=== PATIENT | female | born 1935 | race Caucasian/White ===

== ENCOUNTER 2018-12-25 12:46 | Emergency (ER) | payer MEDICARE ==
[~2018-12-25] VITALS: Ht 157.5 cm; Wt 74.8 kg
[~2018-12-25 12:46] MED LIST: CLON-528 PO; ONDA4TAB6 PO
[2018-12-25] MEDS ORDERED: acetaminophen 325mg tablet PO ONE (12:55)
[2018-12-25 13:15] LABS: BASOPHILS % (AUTO) 0.2 % (0-1); EOSINOPHILS # (AUTO) 0.1 X10'3 (0-0.9); HEMATOCRIT 41.1 % (35.0-45.0); HEMOGLOBIN 14.1 g/dl (12.0-16.0); LYMPHOCYTES # (AUTO) 1.3 X10'3 (1.1-4.8); LYMPHOCYTES % (AUTO) 19.6 % (21-51); MEAN CORPUSCULAR HEMOGLOBIN 30.6 PG (27.0-31.0); MEAN CORPUSCULAR HGB CONC 34.3 g/dL (33.0-36.5); MEAN CORPUSCULAR VOLUME 89.2 FL (78-98); MONOCYTES # (AUTO) 0.5 X10'3 (0-0.9); NEUTROPHILS # (AUTO) 4.9 X10'3 (1.8-7.7); NEUTROPHILS % (AUTO) 72.2 % (42-75); PLATELET COUNT 228 X10'3 (140-440); RED BLOOD COUNT 4.61 X10'6 (4.20-5.60); RED CELL DISTRIBUTION WIDTH 14.4 % (11.5-14.5); WHITE BLOOD COUNT 6.7 X10'3 (4.5-11.0)
[2018-12-25 13:25] LABS: PARTIAL THROMBOPLASTIN TIME 26 SECONDS (22-32)
[2018-12-25 13:27] LABS: ALANINE AMINOTRANSFERASE 23 U/L (12-78); ALBUMIN 3.7 G/DL (3.4-5.0); ALBUMIN/GLOBULIN RATIO 1.1 (1.1-1.5); ALKALINE PHOSPHATASE 54 IU/L (46-116); ANION GAP 7 (8-16); ASPARTATE AMINO TRANSFERASE 19 U/L (10-37); BILIRUBIN,TOTAL 0.4 MG/DL (0.1-1.0); BLOOD UREA NITROGEN 10 MG/DL (7-18); CALCIUM 8.9 MG/DL (8.5-10.1); CHLORIDE 102 MMOL/L (99-107); CREATININE 0.83 MG/DL (0.40-0.90); GLUCOSE 98 MG/DL (70-104); MAGNESIUM 1.9 MG/DL (1.5-2.4); POTASSIUM 3.6 MMOL/L (3.5-5.1); SODIUM 137 MMOL/L (135-145); TOTAL CARBON DIOXIDE 27.9 MMOL/L (24-32); eGFR 65 ML/MIN
[2018-12-25 13:47] LABS: CLARITY,URINE CLEAR (Clear); COLOR,URINE STRAW (Yellow); GLUCOSE, URINE NEGATIVE (Neg); KETONES,URINE NEGATIVE (Neg); LEUKOCYTE ESTERASE ,URINE NEGATIVE (Neg); NITRITES, URINE NEGATIVE (Neg); OCCULT BLOOD,URINE NEGATIVE (Neg); PH,URINE 6.5 (4.8-8.0); PROTEIN,URINE NEGATIVE (Neg); UROBILINOGEN,URINE 0.2 E.U/dL (0.2-1.0)
[2018-12-25 13:55] LABS: UA COLLECTION TYPE OTHER
[2018-12-25 14:26] VITALS: BP 180/105
== END 2018-12-25 14:29 | disposition home or self-care (01) ==
LOC: ER 12:47
DX: S92.325A Nondisplaced fracture of second metatarsal bone, left foot, initial encounter for closed fracture (principal); S92.335A Nondisplaced fracture of third metatarsal bone, left foot, initial encounter for closed fracture; R07.89 Other chest pain; Z88.6 Allergy status to analgesic agent; Z88.8 Allergy status to other drugs, medicaments and biological substances; Z86.73 Personal history of transient ischemic attack (TIA), and cerebral infarction without residual deficits; W18.30XA Fall on same level, unspecified, initial encounter; Y93.89 Activity, other specified; Y92.89 Other specified places as the place of occurrence of the external cause; Y99.8 Other external cause status
CPT/HCPCS: 36415; 71045; 73630; 80053; 81003; 83735; 85025; 85610; 85730; 93005; 99284

== ENCOUNTER 2018-12-30 16:45 | Inpatient (IN) | payer MEDICARE | END 2019-01-03 14:20 | LOC: ER 16:45 → ORTHO 4S 12-31 01:59 | DX: S20.212A Contusion of left front wall of thorax, initial encounter (principal); S92.302A Fracture of unspecified metatarsal bone(s), left foot, initial encounter for closed fracture ==

== ENCOUNTER 2019-06-20 08:09 | Inpatient (IN) | payer MEDICARE ==
[~2019-06-20] VITALS: Ht 172.7 cm; Wt 85.0 kg
[~2019-06-20 08:09] MED LIST changes: -CLON-528 PO; +CLOP75TA35 PO; +LOSA1TAB41 PO; +METO-384 PO; -ONDA4TAB6 PO; +RANI150T8 PO; +ROSU5TAB12 PO
[2019-06-20] MEDS ORDERED: normal saline 1000ML IV soln IV ONE (08:45)
[2019-06-20 09:21] LABS: BASOPHILS % (AUTO) 0.1 % (0-1); EOSINOPHILS # (AUTO) 0.1 X10'3 (0-0.9); EOSINOPHILS % (AUTO) 0.9 % (0-6); HEMATOCRIT 36.7 % (35.0-45.0); HEMOGLOBIN 12.6 g/dl (12.0-16.0); LYMPHOCYTES # (AUTO) 1.3 X10'3 (1.1-4.8); LYMPHOCYTES % (AUTO) 13.9 % (21-51); MEAN CORPUSCULAR HEMOGLOBIN 31.2 PG (27.0-31.0); MEAN CORPUSCULAR HGB CONC 34.4 g/dL (33.0-36.5); MEAN CORPUSCULAR VOLUME 90.7 FL (78-98); MONOCYTES # (AUTO) 0.5 X10'3 (0-0.9); MONOCYTES % (AUTO) 5.1 % (2-12); NEUTROPHILS # (AUTO) 7.5 X10'3 (1.8-7.7); PLATELET COUNT 232 X10'3 (140-440); RED BLOOD COUNT 4.05 X10'6 (4.20-5.60); RED CELL DISTRIBUTION WIDTH 13.7 % (11.5-14.5); WHITE BLOOD COUNT 9.4 X10'3 (4.5-11.0)
[2019-06-20 09:26] LABS: OCCULT BLOOD STOOL POSITIVE (Neg)
[2019-06-20 09:33] LABS: PARTIAL THROMBOPLASTIN TIME 24 SECONDS (22-32)
[2019-06-20 09:40] LABS: ALANINE AMINOTRANSFERASE 28 U/L (12-78); ALBUMIN 3.5 G/DL (3.4-5.0); ALBUMIN/GLOBULIN RATIO 1.1 (1.1-1.5); ALKALINE PHOSPHATASE 44 IU/L (46-116); ANION GAP 7 (8-16); ASPARTATE AMINO TRANSFERASE 20 U/L (10-37); BILIRUBIN,TOTAL 0.3 MG/DL (0.1-1.0); BLOOD UREA NITROGEN 20 MG/DL (7-18); BUN/CREATININE RATIO 22.2 (6.6-38.0); CALCIUM 8.6 MG/DL (8.5-10.1); CHLORIDE 106 MMOL/L (99-107); GLUCOSE 112 MG/DL (70-104); POTASSIUM 3.7 MMOL/L (3.5-5.1); SODIUM 141 MMOL/L (135-145); TOTAL CARBON DIOXIDE 28.3 MMOL/L (24-32); TOTAL PROTEIN 6.8 G/DL (6.4-8.2); eGFR 60 ML/MIN
[2019-06-20] MEDS ORDERED: CELE200C PO (10:45)
[2019-06-20] MEDS ORDERED: DICL100G15 TOP (10:45)
[2019-06-20] MEDS ORDERED: HYDR-4353 PO (10:45)
[2019-06-20] MEDS ORDERED: MULT-625 PO (10:45)
[2019-06-20] MEDS ORDERED: CYAN100097 PO (10:45)
[2019-06-20] MEDS ORDERED: CLON-529 PO (10:45)
[2019-06-20] MEDS ORDERED: UBID100T7 PO (10:45)
[2019-06-20] MEDS ORDERED: ACET-2119 PO (10:45)
[2019-06-20] MEDS ORDERED: GLUC500T12 PEG (10:45)
[2019-06-20] MEDS ORDERED: ASPI81TA52 PO (10:47)
[2019-06-20] MEDS ORDERED: magnesium hydroxide 30ml (MOM) UD suspension PO PRN (11:25)
[2019-06-20] MEDS ORDERED: acetaminophen 325mg tablet PO PRN ×2 (11:25→15:05)
[2019-06-20] MEDS ORDERED: ondansetron/PF 4mg/2ml inj IV PRN (11:25)
[2019-06-20] MEDS ORDERED: mag hydrox/Alum hydrox/simeth 30ml oral suspension PO PRN (11:25)
--- NOTE | 2019-06-20 11:32 | NUR ---
PT HAS LITTLE e and poss BIG E antibodies.
[2019-06-20 12:02] LABS: HEMATOCRIT 33.8 % (35.0-45.0); HEMOGLOBIN 11.8 g/dl (12.0-16.0); MEAN CORPUSCULAR HEMOGLOBIN 31.4 PG (27.0-31.0); MEAN CORPUSCULAR VOLUME 89.6 FL (78-98); MEAN PLATELET VOLUME 8.2 FL (7.4-10.4); PLATELET COUNT 224 X10'3 (140-440); RED BLOOD COUNT 3.77 X10'6 (4.20-5.60); RED CELL DISTRIBUTION WIDTH 13.9 % (11.5-14.5); WHITE BLOOD COUNT 8.8 X10'3 (4.5-11.0)
[2019-06-20] MEDS: normal saline 1000ml 1,000 ML IV SCH ×2 (12:03→21:21)
[2019-06-20 12:45] VITALS: BP 146/61
--- NOTE | 2019-06-20 12:45 | NUR ---
Received patient to room 357a via gurney accompanied by x1 staff. Patient is alert and oriented and in no apparent acute distress. Patient oriented to room and call light. Call light within patient's reach. Bed is low and locked.
--- NOTE | 2019-06-20 14:04 | NUR ---
Patient was being transferred to wheelchair when threat monitoring analyst tech called and stated patient was "in the 160's with PAC and might go in to afib." Let threat monitoring analyst tech know that patient was getting up to wheelchair. Then notified by telecom field technician that patient "she's in 120's and in afib." Patient denies any chest pain but does state "my heart is beating really fast." Patient put back in to bed and Dr. Love notified. Dr. Love in to see patient.
[2019-06-20 14:14] VITALS: BP 144/86
--- NOTE | 2019-06-20 14:16 | NUR ---
STAT EKG completed. Dr Love was shown results. No new orders.
[2019-06-20] MEDS ORDERED: heparin sodium, porcine/PF 100unit/ml 5ML syringe IV ONE (14:23)
--- NOTE | 2019-06-20 14:23 | NUR ---
Patient down to Nuc Med.
[2019-06-20] MEDS ORDERED: cloNIDine 0.1 mg tablet PO PRN (15:05)
--- NOTE | 2019-06-20 17:45 | NUR ---
Patient returned to room 357B via gurney accompanied by x1 staff. Patient A&O and in no apparent acute distress. Patient needed to use bedpan. Placed patient on bedpan. Call light within reach.
[2019-06-20 18:00] VITALS: BP 146/62
--- NOTE | 2019-06-20 18:12 | NUR ---
Paged Dr Love to call for phone number to call back Dr Chun the Radiologist that has a critical result. Dr Chun phone number is
--- NOTE | 2019-06-20 18:33 | NUR ---
Problems reprioritized. Patient report given, questions answered & plan of care reviewed with DESEAN aBbin.
--- NOTE | 2019-06-20 18:34 | NUR ---
Patient in room [facility]. I have received report from DESEAN Olivas and had the opportunity to ask questions and assume patient care.
[2019-06-20] MEDS ORDERED: PEG 3350/Na sulf,bicarb,Cl/KCl oral sol 4 liter bottle PO ONE (18:35)
[2019-06-20 19:09] LABS: HEMATOCRIT 31.1 % (35.0-45.0); HEMOGLOBIN 10.5 g/dl (12.0-16.0); MEAN CORPUSCULAR HEMOGLOBIN 30.8 PG (27.0-31.0); MEAN CORPUSCULAR HGB CONC 33.8 g/dL (33.0-36.5); MEAN CORPUSCULAR VOLUME 91.2 FL (78-98); MEAN PLATELET VOLUME 8.2 FL (7.4-10.4); PLATELET COUNT 232 X10'3 (140-440); RED BLOOD COUNT 3.41 X10'6 (4.20-5.60); WHITE BLOOD COUNT 6.5 X10'3 (4.5-11.0)
[2019-06-20] MEDS: HYDROcodone/acetaminophen 10/325mg tab PO SCH (20:00)
[2019-06-20] MEDS: famotidine 20mg tablet PO SCH (20:17)
[2019-06-20] MEDS: metoprolol tartrate 25mg tablet PO SCH (20:20)
[2019-06-20 22:19] LABS: HEMATOCRIT 26.8 % (35.0-45.0); HEMOGLOBIN 9.2 g/dl (12.0-16.0); MEAN CORPUSCULAR HEMOGLOBIN 31.2 PG (27.0-31.0); MEAN CORPUSCULAR HGB CONC 34.3 g/dL (33.0-36.5); MEAN PLATELET VOLUME 8.1 FL (7.4-10.4); PLATELET COUNT 217 X10'3 (140-440); RED BLOOD COUNT 2.95 X10'6 (4.20-5.60); WHITE BLOOD COUNT 7.7 X10'3 (4.5-11.0)
[2019-06-21] VITALS (24 sets, daily range): BP systolic 119–175; BP diastolic 47–73
[2019-06-21] MEDS: normal saline 1000ml 1,000 ML IV SCH ×3 (00:26→19:04)
[2019-06-21] MEDS: HYDROcodone/acetaminophen 10/325mg tab PO SCH ×4 (02:00→19:26)
[2019-06-21 02:19] LABS: BASOPHILS % (AUTO) 0.2 % (0-1); EOSINOPHILS # (AUTO) 0.1 X10'3 (0-0.9); HEMATOCRIT 24.5 % (35.0-45.0); HEMOGLOBIN 8.4 g/dl (12.0-16.0); LYMPHOCYTES # (AUTO) 1.6 X10'3 (1.1-4.8); LYMPHOCYTES % (AUTO) 24.7 % (21-51); MEAN CORPUSCULAR HEMOGLOBIN 31.2 PG (27.0-31.0); MEAN CORPUSCULAR HGB CONC 34.4 g/dL (33.0-36.5); MEAN CORPUSCULAR VOLUME 90.5 FL (78-98); MONOCYTES # (AUTO) 0.6 X10'3 (0-0.9); MONOCYTES % (AUTO) 8.7 % (2-12); NEUTROPHILS # (AUTO) 4.2 X10'3 (1.8-7.7); NEUTROPHILS % (AUTO) 65.4 % (42-75); PLATELET COUNT 203 X10'3 (140-440); RED CELL DISTRIBUTION WIDTH 13.8 % (11.5-14.5); WHITE BLOOD COUNT 6.5 X10'3 (4.5-11.0)
[2019-06-21 02:27] LABS: ALBUMIN 2.5 G/DL (3.4-5.0); ANION GAP 8 (8-16); BLOOD UREA NITROGEN 16 MG/DL (7-18); BUN/CREATININE RATIO 22.5 (6.6-38.0); CALCIUM 7.3 MG/DL (8.5-10.1); CHLORIDE 112 MMOL/L (99-107); CREATININE 0.71 MG/DL (0.40-0.90); GLUCOSE 111 MG/DL (70-104); POTASSIUM 3.5 MMOL/L (3.5-5.1); SODIUM 145 MMOL/L (135-145); TOTAL CARBON DIOXIDE 24.8 MMOL/L (24-32); eGFR 78 ML/MIN
--- NOTE | 2019-06-21 06:57 | NUR ---
Problems reprioritized. Patient report given, questions answered & plan of care reviewed with DESEAN Marx.
--- NOTE | 2019-06-21 07:04 | NUR ---
Received report from Olaf Aguilera RN
[2019-06-21] MEDS: metoprolol tartrate 25mg tablet PO SCH (08:00)
[2019-06-21] MEDS: metoprolol succinate 25mg (24-HOUR) SR. Tablet PO SCH (08:00)
[2019-06-21] MEDS ORDERED: non-formulary drug (Glucosamine HCl 1 TAB) PEG SCH (08:00)
[2019-06-21] MEDS ORDERED: non-formulary drug (Ubidecarenone (Coenzyme Q10) 1 TAB) PO SCH (08:00)
[2019-06-21] MEDS: atorvastatin 20mg tablet PO SCH (08:00)
[2019-06-21] MEDS: multivitamins, therapeutics tablet PO SCH (08:00)
[2019-06-21] MEDS: famotidine 20mg tablet PO SCH ×2 (09:20→19:04)
[2019-06-21] MEDS: losartan 50mg tablet PO SCH (09:21)
[2019-06-21] MEDS: HYDROchlorothiazide 12.5mg capsule PO SCH (09:21)
--- NOTE | 2019-06-21 09:30 | NUR ---
Bladder scanned patient showed to have 332mls in bladder will continue to monitor.
[2019-06-21 10:02] LABS: HEMATOCRIT 22.7 % (35.0-45.0); HEMOGLOBIN 7.7 g/dl (12.0-16.0); MEAN CORPUSCULAR HEMOGLOBIN 31.1 PG (27.0-31.0); MEAN CORPUSCULAR HGB CONC 34.2 g/dL (33.0-36.5); MEAN CORPUSCULAR VOLUME 91.1 FL (78-98); MEAN PLATELET VOLUME 8.1 FL (7.4-10.4); PLATELET COUNT 212 X10'3 (140-440); RED BLOOD COUNT 2.49 X10'6 (4.20-5.60); RED CELL DISTRIBUTION WIDTH 14.2 % (11.5-14.5); WHITE BLOOD COUNT 6.3 X10'3 (4.5-11.0)
[2019-06-21] MEDS ORDERED: normal saline 500ml IV soln 500 ML IV ONE (11:10)
[2019-06-21] MEDS ORDERED: fentaNYL/PF 50MCG/1 ML 2ML syringe IV PRN (11:15)
[2019-06-21] MEDS ORDERED: midazolam 2 mg/2 ml injection IV PRN (11:15)
[2019-06-21] MEDS ORDERED: heparin 1,000 UNITS/NS 500ml 500 ML ICATH ONE (11:15)
[2019-06-21] MEDS ORDERED: LIDOcaine 1%/PF 5ML 10 MG/ML VIAL SQ ONE (11:15)
[2019-06-21] MEDS ORDERED: LIDOcaine 1%/PF 5ML 10 MG/ML VIAL ONE (11:17)
[2019-06-21] MEDS ORDERED: iohexol 300mg/ml 100ml inj. ONE ×2 (11:17→12:13)
[2019-06-21] MEDS ORDERED: heparin 1,000 UNITS/NS 500ml 500 ML ONE (11:32)
[2019-06-21] MEDS ORDERED: midazolam 2 mg/2 ml injection ONE ×2 (11:32→12:20)
[2019-06-21] MEDS ORDERED: fentaNYL/PF 50MCG/1 ML 2ML syringe ONE ×3 (11:32→14:18)
--- NOTE | 2019-06-21 11:33 | NUR ---
Per Dr cleveland hold lopressor and Motoprolo xl per for [address] Cleveland also aware patient only takes Motoprolol xl at home.
[2019-06-21] MEDS ORDERED: glucagon, human recombinant 1mg kit ONE (11:37)
--- NOTE | 2019-06-21 11:45 | NUR ---
Notified Fito in Angio that patients blood is ready
--- NOTE | 2019-06-21 12:43 | NUR ---
Dr Love aware of patients bladder scan at 0930 of 332ml's in bladder. No new orders doesn't want to place [facility] at this time
[2019-06-21] MEDS ORDERED: MIDAZolam 5mg/5ml vial ONE (14:18)
[2019-06-21 14:45] LABS: HEMOGLOBIN 10.2 g/dl (12.0-16.0); MEAN CORPUSCULAR HEMOGLOBIN 31.4 PG (27.0-31.0); MEAN CORPUSCULAR HGB CONC 34.1 g/dL (33.0-36.5); MEAN CORPUSCULAR VOLUME 92.1 FL (78-98); MEAN PLATELET VOLUME 8.1 FL (7.4-10.4); PLATELET COUNT 175 X10'3 (140-440); RED BLOOD COUNT 3.26 X10'6 (4.20-5.60); RED CELL DISTRIBUTION WIDTH 14.5 % (11.5-14.5)
--- NOTE | 2019-06-21 14:48 | NUR ---
Patient taken via gurney for colonoscopy. Terrie with GI aware that patient just got back from [facility] angiogram at 1300 monitor right groin for bleeding.
--- NOTE | 2019-06-21 18:00 | NUR ---
Patient in room [facility]. I have received report from Altagracia ANTON and had the opportunity to ask questions and assume patient care.
--- NOTE | 2019-06-21 18:30 | NUR ---
Dressing assessed with britni right groin. intact no increase in drainage or swelling, skin is warm and dry. + pulses Addendum: 06/21/19 at 2220 by Kylee Silver RN Amended: Links added.
--- NOTE | 2019-06-21 19:29 | NUR ---
URINE SAT UNDER BED, LINEN CHANGE TAMARA CARE AND BACK WASHED. PT TURNS SIDE TO SIDE LEFT SIDED WEAKNESS, LEFT LEG PAINFULL, SOME COLDNESS TO LEG + PULSES, STATES WEAKER SINCE STROKE, RIGHT GROIN DRSG WITH DRIED MOD SWAPNA PACEKARIE NOT INCREASED SINCE REPORT. WILL MONITOR. Addendum: 06/21/19 at 1932 by Kylee Silver RN Amended: Links added.
--- NOTE | 2019-06-21 20:00 | NUR ---
dRESSING TO GROIN INTACT NO INCREASE IN DRAINAGE. + PEDAL PULSES BILAT. HR 120'S ASSYMPTOMATIC, PT HAS BEEN IN AND OUT OF MD [facility] AWARE. Addendum: 06/21/19 at 2054 by Kylee Silevr RN Amended: Links added.
[2019-06-21 20:35] LABS: HEMATOCRIT 27.1 % (35.0-45.0); HEMOGLOBIN 9.3 g/dl (12.0-16.0); MEAN CORPUSCULAR HEMOGLOBIN 31.4 PG (27.0-31.0); MEAN CORPUSCULAR HGB CONC 34.2 g/dL (33.0-36.5); MEAN CORPUSCULAR VOLUME 91.7 FL (78-98); MEAN PLATELET VOLUME 7.9 FL (7.4-10.4); PLATELET COUNT 166 X10'3 (140-440); RED BLOOD COUNT 2.95 X10'6 (4.20-5.60); RED CELL DISTRIBUTION WIDTH 14.4 % (11.5-14.5); WHITE BLOOD COUNT 9.2 X10'3 (4.5-11.0)
[2019-06-22] VITALS: BP 120/52
[2019-06-22] MEDS ORDERED: HYDROcodone/acetaminophen 10/325mg tab PO PRN (02:00)
--- NOTE | 2019-06-22 03:07 | NUR ---
dressing intact positive pedal pulses. no c/o pain. unable to draw labs Addendum: 06/22/19 at 0308 by Kylee Silver RN Amended: Links added.
[2019-06-22] MEDS: normal saline 1000ml 1,000 ML IV SCH (04:10)
[2019-06-22 05:47] LABS: BASOPHILS % (AUTO) 0.2 % (0-1); EOSINOPHILS # (AUTO) 0.2 X10'3 (0-0.9); EOSINOPHILS % (AUTO) 3.4 % (0-6); HEMATOCRIT 25.1 % (35.0-45.0); HEMOGLOBIN 8.7 g/dl (12.0-16.0); LYMPHOCYTES # (AUTO) 1.5 X10'3 (1.1-4.8); MEAN CORPUSCULAR HEMOGLOBIN 31.3 PG (27.0-31.0); MEAN CORPUSCULAR HGB CONC 34.7 g/dL (33.0-36.5); MEAN CORPUSCULAR VOLUME 90.3 FL (78-98); MONOCYTES # (AUTO) 0.7 X10'3 (0-0.9); MONOCYTES % (AUTO) 11.4 % (2-12); NEUTROPHILS # (AUTO) 3.7 X10'3 (1.8-7.7); PLATELET COUNT 157 X10'3 (140-440); RED BLOOD COUNT 2.77 X10'6 (4.20-5.60); RED CELL DISTRIBUTION WIDTH 14.2 % (11.5-14.5); WHITE BLOOD COUNT 6.1 X10'3 (4.5-11.0)
[2019-06-22 05:53] LABS: ALBUMIN 2.3 G/DL (3.4-5.0); ANION GAP 8 (8-16); BLOOD UREA NITROGEN 9 MG/DL (7-18); CALCIUM 6.7 MG/DL (8.5-10.1); CHLORIDE 112 MMOL/L (99-107); GLUCOSE 93 MG/DL (70-104); SODIUM 144 MMOL/L (135-145); TOTAL CARBON DIOXIDE 23.9 MMOL/L (24-32); eGFR > 90 ML/MIN
[2019-06-22 05:59] LABS: POTASSIUM 2.9 MMOL/L (3.5-5.1)
[2019-06-22] MEDS ORDERED: potassium Cl 20 mEq SR tablet PO PRN (06:30)
[2019-06-22] MEDS ORDERED: magnesium Cl slow-release 64mg tablet PO PRN (06:30)
[2019-06-22] MEDS ORDERED: potassium CL 10mEq/100ml bag 100 ML IV PRN (06:30)
[2019-06-22] MEDS ORDERED: magnesium 4gm in 100ml NS 100 ML IV PRN (06:30)
--- NOTE | 2019-06-22 06:30 | NUR ---
Patient in room [facility]. I have received report from Altagracia ANTON and had the opportunity to ask questions and assume patient care.
--- NOTE | 2019-06-22 06:30 | NUR ---
Patient in room [facility]. I have received report from Altagracia ANTON and had the opportunity to ask questions and assume patient care.
--- NOTE | 2019-06-22 06:55 | NUR ---
Problems reprioritized. Patient report given, questions answered & plan of care reviewed with DESEAN Abdullahi. Addendum: 06/22/19 at 0655 by Kylee Silver RN Amended: Links added.
[2019-06-22 07:00] VITALS: BP 137/54
[2019-06-22 07:38] LABS: MAGNESIUM 1.6 MG/DL (1.5-2.4)
[2019-06-22] MEDS: losartan 50mg tablet PO SCH (07:50)
[2019-06-22] MEDS: famotidine 20mg tablet PO SCH ×2 (07:52→19:47)
[2019-06-22] MEDS: atorvastatin 20mg tablet PO SCH (07:53)
[2019-06-22] MEDS: cyanocobalamin 500mcg tablet PO SCH (07:53)
[2019-06-22] MEDS: HYDROchlorothiazide 12.5mg capsule PO SCH (07:53)
[2019-06-22] MEDS: multivitamins, therapeutics tablet PO SCH (07:53)
[2019-06-22 09:35] LABS: HEMATOCRIT 25.1 % (35.0-45.0); HEMOGLOBIN 8.5 g/dl (12.0-16.0); MEAN CORPUSCULAR HEMOGLOBIN 31.1 PG (27.0-31.0); MEAN CORPUSCULAR HGB CONC 34.1 g/dL (33.0-36.5); MEAN CORPUSCULAR VOLUME 91.4 FL (78-98); MEAN PLATELET VOLUME 8.1 FL (7.4-10.4); PLATELET COUNT 152 X10'3 (140-440); RED BLOOD COUNT 2.74 X10'6 (4.20-5.60); RED CELL DISTRIBUTION WIDTH 14.5 % (11.5-14.5); WHITE BLOOD COUNT 6.2 X10'3 (4.5-11.0)
[2019-06-22 11:00] VITALS: BP 161/50
[2019-06-22] MEDS: potassium Cl 20 mEq SR tablet PO PRN ×2 (14:22→22:30)
--- NOTE | 2019-06-22 14:25 | NUR ---
Student Medication Administration: For this medication-pass time frame, all medication were reviewed, dispensed, administered and documented per hospital policy by SN Herbert.
[2019-06-22 14:44] LABS: HEMATOCRIT 25.2 % (35.0-45.0); HEMOGLOBIN 8.8 g/dl (12.0-16.0); MEAN CORPUSCULAR HEMOGLOBIN 31.5 PG (27.0-31.0); MEAN CORPUSCULAR HGB CONC 34.9 g/dL (33.0-36.5); MEAN CORPUSCULAR VOLUME 90.2 FL (78-98); MEAN PLATELET VOLUME 7.8 FL (7.4-10.4); PLATELET COUNT 162 X10'3 (140-440); RED CELL DISTRIBUTION WIDTH 14.2 % (11.5-14.5); WHITE BLOOD COUNT 7.7 X10'3 (4.5-11.0)
--- NOTE | 2019-06-22 17:07 | NUR ---
Student documentation: I have reviewed and agree with all interventions, assessments performed and documented by SN Herbert.
--- NOTE | 2019-06-22 18:25 | NUR ---
Patient reported small amount of blood coming from rectum upon being cleaned after urination, no full BM, this was patient reported
--- NOTE | 2019-06-22 18:30 | NUR ---
Problems reprioritized. Patient report given, questions answered & plan of care reviewed with Ino ANTON.
--- NOTE | 2019-06-22 18:35 | NUR ---
Patient in room [facility]. I have received report from LUTHER ANTON and had the opportunity to ask questions and assume patient care.
[2019-06-22 20:00] VITALS: BP 142/63
[2019-06-22 21:45] LABS: HEMATOCRIT 26.6 % (35.0-45.0); MEAN CORPUSCULAR HEMOGLOBIN 31.1 PG (27.0-31.0); MEAN CORPUSCULAR VOLUME 91.5 FL (78-98); MEAN PLATELET VOLUME 7.8 FL (7.4-10.4); PLATELET COUNT 165 X10'3 (140-440); RED CELL DISTRIBUTION WIDTH 14.2 % (11.5-14.5); WHITE BLOOD COUNT 7.9 X10'3 (4.5-11.0)
[2019-06-23] VITALS: BP 142/63
[2019-06-23 05:47] LABS: ALBUMIN 2.2 G/DL (3.4-5.0); ANION GAP 4 (8-16); BLOOD UREA NITROGEN 4 MG/DL (7-18); BUN/CREATININE RATIO 6.8 (6.6-38.0); CALCIUM 6.7 MG/DL (8.5-10.1); CHLORIDE 111 MMOL/L (99-107); CREATININE 0.59 MG/DL (0.40-0.90); GLUCOSE 97 MG/DL (70-104); MAGNESIUM 1.8 MG/DL (1.5-2.4); SODIUM 142 MMOL/L (135-145); TOTAL CARBON DIOXIDE 26.9 MMOL/L (24-32); eGFR > 90 ML/MIN
[2019-06-23 05:55] LABS: BASOPHILS % (AUTO) 0.2 % (0-1); EOSINOPHILS # (AUTO) 0.1 X10'3 (0-0.9); EOSINOPHILS % (AUTO) 2.3 % (0-6); HEMATOCRIT 22.6 % (35.0-45.0); HEMOGLOBIN 7.9 g/dl (12.0-16.0); LYMPHOCYTES # (AUTO) 1.3 X10'3 (1.1-4.8); LYMPHOCYTES % (AUTO) 21.9 % (21-51); MEAN CORPUSCULAR HEMOGLOBIN 31.5 PG (27.0-31.0); MEAN PLATELET VOLUME 7.8 FL (7.4-10.4); MONOCYTES # (AUTO) 0.7 X10'3 (0-0.9); NEUTROPHILS # (AUTO) 3.8 X10'3 (1.8-7.7); NEUTROPHILS % (AUTO) 64.6 % (42-75); PLATELET COUNT 145 X10'3 (140-440); POTASSIUM 2.9 MMOL/L (3.5-5.1); RED BLOOD COUNT 2.51 X10'6 (4.20-5.60); RED CELL DISTRIBUTION WIDTH 14.2 % (11.5-14.5); WHITE BLOOD COUNT 5.9 X10'3 (4.5-11.0)
--- NOTE | 2019-06-23 06:00 | NUR ---
Patient in room [facility]. I have received report from ANNA CASTILLO RN and had the opportunity to ask questions and assume patient care.
--- NOTE | 2019-06-23 06:00 | NUR ---
CALLED DR. ALMANZA FOR CRITICAL POTASSIUM 2.9 NO NEW ORDER PATIENT ALREADY ON REPLACEMENT PROTOCOL.
[2019-06-23] MEDS: potassium Cl 20 mEq SR tablet PO PRN ×3 (06:14→16:57)
--- NOTE | 2019-06-23 06:30 | NUR ---
Problems reprioritized. Patient report given, questions answered & plan of care reviewed with ANTONIA ANTON.
[2019-06-23 08:00] VITALS: BP 154/63
[2019-06-23] MEDS: HYDROchlorothiazide 12.5mg capsule PO SCH (08:47)
[2019-06-23] MEDS: multivitamins, therapeutics tablet PO SCH (08:48)
[2019-06-23] MEDS: atorvastatin 20mg tablet PO SCH (08:49)
[2019-06-23] MEDS: losartan 50mg tablet PO SCH (08:49)
[2019-06-23] MEDS: cyanocobalamin 500mcg tablet PO SCH (08:49)
[2019-06-23] MEDS: famotidine 20mg tablet PO SCH ×2 (08:49→19:48)
[2019-06-23 11:00] VITALS: BP 144/54
--- NOTE | 2019-06-23 18:16 | NUR ---
REVIEWED STUDENT'S CHARTING
--- NOTE | 2019-06-23 18:30 | NUR ---
Patient in room [facility]. I have received report from ANTONIA ANTON and had the opportunity to ask questions and assume patient care.
[2019-06-23 20:00] VITALS: BP 158/66
[2019-06-24] VITALS: BP 153/54
[2019-06-24 05:06] LABS: BASOPHILS % (AUTO) 0.3 % (0-1); EOSINOPHILS # (AUTO) 0.2 X10'3 (0-0.9); HEMATOCRIT 25.9 % (35.0-45.0); HEMOGLOBIN 8.9 g/dl (12.0-16.0); LYMPHOCYTES # (AUTO) 1.5 X10'3 (1.1-4.8); LYMPHOCYTES % (AUTO) 19.8 % (21-51); MEAN CORPUSCULAR HEMOGLOBIN 31.3 PG (27.0-31.0); MEAN CORPUSCULAR HGB CONC 34.5 g/dL (33.0-36.5); MEAN CORPUSCULAR VOLUME 90.9 FL (78-98); MONOCYTES # (AUTO) 0.7 X10'3 (0-0.9); MONOCYTES % (AUTO) 9.6 % (2-12); NEUTROPHILS # (AUTO) 4.9 X10'3 (1.8-7.7); NEUTROPHILS % (AUTO) 67.3 % (42-75); PLATELET COUNT 153 X10'3 (140-440); RED BLOOD COUNT 2.85 X10'6 (4.20-5.60); RED CELL DISTRIBUTION WIDTH 14.2 % (11.5-14.5); WHITE BLOOD COUNT 7.3 X10'3 (4.5-11.0)
[2019-06-24 05:20] LABS: ALBUMIN 2.4 G/DL (3.4-5.0); ANION GAP 4 (8-16); BLOOD UREA NITROGEN 4 MG/DL (7-18); BUN/CREATININE RATIO 6.5 (6.6-38.0); CALCIUM 7.5 MG/DL (8.5-10.1); CHLORIDE 109 MMOL/L (99-107); CREATININE 0.62 MG/DL (0.40-0.90); GLUCOSE 89 MG/DL (70-104); SODIUM 141 MMOL/L (135-145); TOTAL CARBON DIOXIDE 27.9 MMOL/L (24-32); eGFR > 90 ML/MIN
--- NOTE | 2019-06-24 06:26 | NUR ---
Problems reprioritized. Patient report given, questions answered & plan of care reviewed with ANTONIA ANTON.
--- NOTE | 2019-06-24 06:27 | NUR ---
Patient in room [facility]. I have received report from ANNA CASTILLO RN and had the opportunity to ask questions and assume patient care.
[2019-06-24] MEDS: cyanocobalamin 500mcg tablet PO SCH (08:56)
[2019-06-24] MEDS: multivitamins, therapeutics tablet PO SCH (08:56)
[2019-06-24] MEDS: metoprolol succinate 25mg (24-HOUR) SR. Tablet PO SCH (08:57)
[2019-06-24] MEDS: atorvastatin 20mg tablet PO SCH (08:57)
[2019-06-24] MEDS: losartan 50mg tablet PO SCH (08:57)
[2019-06-24] MEDS: HYDROchlorothiazide 12.5mg capsule PO SCH (08:57)
[2019-06-24] MEDS: metoprolol tartrate 25mg tablet PO SCH (08:57)
[2019-06-24] MEDS: famotidine 20mg tablet PO SCH (09:01)
[2019-06-24 12:00] VITALS: BP 155/56
--- NOTE | 2019-06-24 18:10 | NUR ---
REVIEWED STUDENT CHARTING
== END 2019-06-24 15:45 | disposition home health service (06) | DRG 378 ==
LOC: ER 08:10 → ED HOLD 11:21 → SUR 3N 12:48
PROVIDERS: ADMIT Family Medicine; ATTEND Family Medicine
PROC: C713YZZ Planar Nuclear Medicine Imaging of Blood using Other Radionuclide (ICD-10-PCS; 2019-06-20)
PROC: 30233N1 Transfusion of Nonautologous Red Blood Cells into Peripheral Vein, Percutaneous Approach (ICD-10-PCS; principal; 2019-06-21)
PROC: 0DJD8ZZ Inspection of Lower Intestinal Tract, Via Natural or Artificial Opening Endoscopic (ICD-10-PCS; 2019-06-21)
PROC: B4101ZZ Fluoroscopy of Abdominal Aorta using Low Osmolar Contrast (ICD-10-PCS; 2019-06-21)
PROC: B4151ZZ Fluoroscopy of Inferior Mesenteric Artery using Low Osmolar Contrast (ICD-10-PCS; 2019-06-21)
PROC: B4141ZZ Fluoroscopy of Superior Mesenteric Artery using Low Osmolar Contrast (ICD-10-PCS; 2019-06-21)
PROC: B41C1ZZ Fluoroscopy of Pelvic Arteries using Low Osmolar Contrast (ICD-10-PCS; 2019-06-21)
PROC: B41F1ZZ Fluoroscopy of Right Lower Extremity Arteries using Low Osmolar Contrast (ICD-10-PCS; 2019-06-21)
DX: K57.31 Diverticulosis of large intestine without perforation or abscess with bleeding (principal); D62 Acute posthemorrhagic anemia; E78.5 Hyperlipidemia, unspecified; R00.0 Tachycardia, unspecified; E87.6 Hypokalemia; I10 Essential (primary) hypertension; I48.0 Paroxysmal atrial fibrillation; Z79.82 Long term (current) use of aspirin; Z86.73 Personal history of transient ischemic attack (TIA), and cerebral infarction without residual deficits; Z90.49 Acquired absence of other specified parts of digestive tract; Z88.5 Allergy status to narcotic agent; Z88.8 Allergy status to other drugs, medicaments and biological substances; Z90.722 Acquired absence of ovaries, bilateral
CPT/HCPCS: 36245; 45378; 99285; G0269; 36415; 71045; 75726; 76937; 78278; 80048; 80053; 82272; 83735; 84132; 85025; 85027; 85610; 85730; 86870; 86885; 86900; 86901; 86902; 86905; 86922; 87081; 93005; 99152; 99153; A4620; A9560; C1760; C1769; C1894; G0378; J1610; J1642; J1644; J2250; J2405; J3010; J3420; J7030; J7040; P9016; Q9967